=== PATIENT | female | born 1950 | race Hispanic/Latino ===

== ENCOUNTER 2019-03-28 05:25 | Day surgery (SDC) | payer MEDICARE ==
[~2019-03-28] VITALS: Ht 161.3 cm; Wt 64.4 kg
[~2019-03-28 05:25] MED LIST: ALEN70TA10 PO; ALPR0.25 PO; AMLO5TAB9 PO; ASCO250T5 PO; BUDE10.2 IH; DIPH25TA51 PO; ESCI10TA PO; MV-M1TAB20 PO; TRAZ-185 PO
[2019-03-28] MEDS ORDERED: SODIUM CHLORIDE 0.9% 1000ML 1,000 ML IV ONE (05:31)
[2019-03-28 06:00] VITALS: BP 136/63
[2019-03-28] MEDS ORDERED: PROPOFOL 10 MG/ML 20ML VIAL IV ONE ×2 (06:41→07:30)
[2019-03-28] MEDS ORDERED: LIDOCAINE HCL 1% 20 ML VIAL ONE (06:42)
[2019-03-28 07:49] VITALS: BP 114/79
[2019-03-28 07:54] VITALS: BP 129/57
[2019-03-28 07:59] VITALS: BP 132/64
[2019-03-28 08:04] VITALS: BP 120/65
== END 2019-03-28 08:15 | disposition home or self-care (01) ==
LOC: ENDO 05:25 → DAH 05:25 → ENDO 08:15
PROVIDERS: ATTEND Internal Medicine
DX: D12.0 Benign neoplasm of cecum (principal); D12.8 Benign neoplasm of rectum; K63.5 Polyp of colon; K57.30 Diverticulosis of large intestine without perforation or abscess without bleeding; M81.0 Age-related osteoporosis without current pathological fracture; I10 Essential (primary) hypertension; J44.9 Chronic obstructive pulmonary disease, unspecified; F41.9 Anxiety disorder, unspecified; G47.00 Insomnia, unspecified; Z79.899 Other long term (current) drug therapy; Z72.89 Other problems related to lifestyle; Z87.891 Personal history of nicotine dependence; Z86.010 Personal history of colon polyps; Z90.710 Acquired absence of both cervix and uterus; Z90.49 Acquired absence of other specified parts of digestive tract; Z98.890 Other specified postprocedural states
CPT/HCPCS: 45380; 45385; 88305; A4606; J2704 ×2; J7030